=== PATIENT | male | born 1970 | race American Indian/Alaskan Native ===

== ENCOUNTER 2019-07-05 11:57 | Emergency (ER) | payer SELFPAY ==
[2019-07-05 12:07] VITALS: BP 127/92
--- NOTE | 2019-07-05 12:07 | Emergency Department Report ---
Blank Doc - Documentation Documentation: This is a 49-year-old male that presents with neck pain and right shoulder pain with radiation to right upper arm s/p fall. This initial assessment/diagnostic orders/clinical plan/treatment(s) is/are subject to change based on patient's health status, clinical progression and re- assessment by fellow clinical providers in the ED. Further treatment and workup at subsequent clinical providers discretion. Patient/guardians urged not to elope from the ED as their condition may be serious if not clinically assessed and managed. Initial orders include: 1- Patient sent to [facility] for further evaluation and treatment 2- xrays 3- c-collar
[2019-07-05] MEDS ORDERED: IBUPROFEN PO ONE (12:21)
--- NOTE | 2019-07-05 12:27 | Emergency Department Report ---
ED Back Pain/Injury HPI - General Chief Complaint: Fall Stated Complaint: FELL/NECK/SHOULDER/ARM PAIN Time Seen by Provider: 07/05/19 12:06 Source: patient Limitations: No Limitations - History of Present Illness Initial Comments: 49 YO SP GLF 10 DAYS AGO COMES TO ER TODAY CO NECK, NECK, SHOULDER AND ARM PAIN. AMBULATORY WITH NORMAL VS ON ARRIVAL. NO ABRASIONS, LACS OR OTHER INJURIES NOTED MECHANICAL FALL PER PT; NO LOC - Related Data Previous Rx's Medication Instructions Recorded Last Taken Type Ibuprofen [Motrin] 800 mg PO Q8HR PRN #20 tablet 07/05/19 Unknown Rx Allergies Allergy/AdvReac Type Severity Reaction Status Date / Time No Known Allergies Allergy Unverified 07/05/19 12:01 ED Review of Systems ROS: Stated complaint: FELL/NECK/SHOULDER/ARM PAIN Other details as noted in HPI Comment: All other systems reviewed and negative ED Past Medical Hx - Past Medical History Medical history: no medical history ED Back Pain Physical Exam - Exam General: Vital signs noted. No distress. Alert and acting appropriately. Back/Abdomen: No Abdominal Tenderness, No Perithoracic Tenderness, No Perilumbar Tenderness, No Sacroiliac Tenderness, No Flank Tenderness, No Straight Leg Raise Pain Neuro: Yes Normal Sensation, Yes Normal DTR's, Yes Normal Gait, No Motor Weakness ED Course Vital Signs 07/05/19 12:06 Temperature 98.5 F Pulse Rate 87 Respiratory 18 Rate Blood Pressure 127/92 O2 Sat by Pulse 98 Oximetry Ed Back Pain Tests - Tests Tests: Normal X Rays ED Medical Decision Making - Radiology Data Radiology results: report reviewed, image reviewed - Medical Decision Making XRAYS NEG MEDICATED WITH MOTRIN FOR PAIN PT EDUCATED ON DC PLAN OF CARE WILL DC HOME WITH FOLLOW UP WITH DR KENAN Wilson FULL ROM ALL EXTREMITIES AND NEURO INTACT ON DC Vital Signs 07/05/19 12:06 Temperature 98.5 F Pulse Rate 87 Respiratory 18 Rate Blood Pressure 127/92 O2 Sat by Pulse 98 Oximetry - Differential Diagnosis RO FX Critical care attestation.: If time is entered above; I have spent that time in minutes in the direct care of this critically ill patient, excluding procedure time. ED Disposition Clinical Impression: Fall, Musculoskeletal pain Disposition: DC-01 TO HOME OR SELFCARE Is pt being admited?: No Does the pt Need Aspirin: No Condition: Stable Instructions: Musculoskeletal Pain (ED) Additional Instructions: WARM COMPRESSES MED ORDERED TODAY TYLENOL OVER THE COUNTER 1 GM BY MOUTH EVERY 8 HOURS MAY HELP WITH PAIN WELL YOU CAN ALTERNATE THESE EVERY 4 HOURS FOLLOW UP WITH DR GRAYSON IN 1 WEEK IF PERSISTS REFERRAL BELOW Referrals: DIONNE GRAYSON MD [Staff Physician] - 3-5 Days Time of Disposition: 13:35
--- NOTE | 2019-07-05 13:16 | XRay Report ---
Right shoulder, 3 views INDICATION: pain s/p fall. COMPARISON: None. IMPRESSION: No acute osseous or soft tissue abnormality. No significant DJD. Signer Name: Jus Erazo Jr, MD Signed: 07/05/2019 1:12 PM Workstation Name: [id number]
--- NOTE | 2019-07-05 13:16 | XRay Report ---
Cervical spine, 3 views INDICATION: pain s/p fall. COMPARISON: None. IMPRESSION: Normal alignment. Moderate to severe degenerative disc disease identified at C5-6 and C 6-7. The facet joints are unremarkable. No acute osseous or soft tissue abnormality. Signer Name: Jus Erazo Jr, MD Signed: 07/05/2019 1:11 PM Workstation Name: [id number]
== END 2019-07-05 13:45 | disposition home or self-care (01) ==
LOC: ED 11:57
DX: M79.10 Myalgia, unspecified site (principal); W19.XXXA Unspecified fall, initial encounter; Y93.89 Activity, other specified; Y92.89 Other specified places as the place of occurrence of the external cause; Y99.8 Other external cause status
CPT/HCPCS: 72040